=== PATIENT | male | born 1960 | race Two or more races ===

== ENCOUNTER 2023-01-18 14:53 | Inpatient (IN) | payer OTHER, MEDICAID ==
[~2023-01-18] VITALS: Ht 177.8 cm; Wt 93.0 kg
[2023-01-18] MEDS ORDERED: ASPirin-EC 81 mg tab PO ONE (15:15)
[2023-01-18] MEDS ORDERED: NITROGLYCERIN 2% OINT 1GM PKG TD ONE (15:15)
[2023-01-18 15:35] LABS: Basophils # (auto) 0 10 ^3/uL (0-0.2); Basophils % (auto) 0.4 % (0.0-2.0); Eosinophils # (auto) 0 10 ^3/uL (0-0.8); Eosinophils % (auto) 0.1 % (0.0-7.0); Hematocrit 38.6 % (41.0-53.0); Hemoglobin 12.6 g/dL (13.5-17.5); Lymphocytes # (auto) 0.6 10 ^3/uL (0.4-5.4); Lymphocytes % (auto) 10.4 % (10.0-50.0); Mean Corpuscular Hemoglobin 28.6 pg (28.0-32.0); Mean Corpuscular Hgb Conc. 32.5 g/dL (32.0-36.0); Mean Corpuscular Volume 87.9 fL (80.0-100.0); Monocytes # (auto) 0.4 10 ^3/uL (0-1.3); Monocytes % (auto) 7.6 % (0.0-12.0); Neutrophils # (auto) 4.8 10 ^3/uL (1.6-8.6); Neutrophils % (auto) 81.5 % (37.0-80.0); Nucleated Red Blood Cells % 0.1 %; Red Blood Cells 4.39 10^6/uL (4.5-5.90); Red Cell Distribution Width 16.1 % (11.8-14.3); White Blood Cell 5.9 10^3/uL (4.4-10.8)
[2023-01-18] MEDS ORDERED: ONDANSETRON HCL 4 MG/2 ML VIAL ONE (16:13)
[2023-01-18 16:14] LABS: Albumin 3.8 g/dL (3.4-5.0); Potassium 4.6 mmol/L (3.5-5.1)
[2023-01-18] MEDS ORDERED: ONDANSETRON HCL 4 MG/2 ML VIAL IV ONE ×2 (16:15→20:15)
[2023-01-18 16:19] LABS: BUN/Creatinine Ratio 21.4 (10.0-20.0); Bilirubin, Total 0.2 mg/dL (0.2-1.0); Total Protein 7.2 g/dL (6.4-8.2)
[2023-01-18 16:36] LABS: INR 0.98 (0.9-1.15); Prothrombin Time 10.3 sec (9.3-11.8)
[2023-01-18] MEDS ORDERED: MORPHINE SULFATE 4 MG/ML SYR/VIAL IV ONE (17:00)
[2023-01-18] MEDS ORDERED: HEPARIN DRIP/D5W 100UNITS/ML 250 ML IV SCH ×2 (17:15→17:31)
[2023-01-18] MEDS ORDERED: HEPARIN SODIUM (PORCINE) 5000 UNITS/ML 1ML VIAL IV ONE (17:30)
[2023-01-18 17:46] VITALS: PULSE 124; RESP 20; O2SAT 98
[2023-01-18 18:04] LABS: Basophils # (auto) 0 10 ^3/uL (0-0.2); Basophils % (auto) 0.2 % (0.0-2.0); Eosinophils # (auto) 0 10 ^3/uL (0-0.8); Hematocrit 38.5 % (41.0-53.0); Hemoglobin 12.5 g/dL (13.5-17.5); Lymphocytes # (auto) 0.9 10 ^3/uL (0.4-5.4); Mean Corpuscular Hemoglobin 28.7 pg (28.0-32.0); Mean Corpuscular Hgb Conc. 32.5 g/dL (32.0-36.0); Mean Corpuscular Volume 88.4 fL (80.0-100.0); Monocytes # (auto) 0.7 10 ^3/uL (0-1.3); Neutrophils # (auto) 5.8 10 ^3/uL (1.6-8.6); Neutrophils % (auto) 78.8 % (37.0-80.0); Nucleated Red Blood Cells % 0.2 %; Red Blood Cells 4.35 10^6/uL (4.5-5.90); Red Cell Distribution Width 15.8 % (11.8-14.3); White Blood Cell 7.3 10^3/uL (4.4-10.8)
[2023-01-18] MEDS ORDERED: NITROGLYCERIN 0.4 MG SL TAB SL PRN (18:15)
[2023-01-18] MEDS ORDERED: MORPHINE SULFATE INJ 2 MG/ml SYRG IV PRN (18:15)
[2023-01-18 18:28] LABS: INR 0.98 (0.9-1.15); Partial Thromboplastin Time 27.6 SEC (24.5-34.5); Prothrombin Time 10.3 sec (9.3-11.8)
[2023-01-18 18:30] VITALS: O2SAT 98
[2023-01-18] MEDS ORDERED: DEXTROSE (50%) 50ML SYRG IV PRN (18:30)
[2023-01-18] MEDS ORDERED: IOHEXOL 350 MG/ML 100ML IJ ONE (18:35)
[2023-01-18 18:46] LABS: Cholesterol 137 mg/dL (< 200)
[2023-01-18 18:49] LABS: HDL Cholesterol 64 mg/dL (40-59); LDL Cholesterol 63 mg/dL (< 100); Triglycerides 89 mg/dL (< 150)
[2023-01-18 18:54] VITALS: BP 112/65; PULSE 124; RESP 20; TEMP 98.4; O2SAT 98
[2023-01-18] MEDS ORDERED: METOPROLOL TARTRATE 25 MG TAB PO ONE (19:00)
[2023-01-18 19:34] VITALS: PULSE 130; RESP 17; O2SAT 99
[2023-01-18] MEDS: HYDROcodone-ACET 5/325MG TAB PO PRN (20:44)
[2023-01-18] MEDS: InsuLIN REG 1unit/0.01ml Soln (100units/ml) SC SCH (22:00)
[2023-01-18] MEDS: ACCU-CHEK COMFORT CURVE STRIP VI SCH (22:36)
[2023-01-18] MEDS: ATORVASTATIN 20 MG TAB PO SCH (22:43)
[2023-01-18 23:33] LABS: INR 0.99 (0.9-1.15); Prothrombin Time 10.4 sec (9.3-11.8)
[2023-01-18 23:55] VITALS: PULSE 119; RESP 20; O2SAT 96
[2023-01-19] VITALS (9 sets, daily range): BP systolic 104–125; BP diastolic 74–89; PULSE 121–131; RESP 18–23; TEMP 98.6; O2SAT 94–100
[2023-01-19] MEDS: ONDANSETRON HCL 4 MG/2 ML VIAL IV PRN ×2 (00:04→13:09)
[2023-01-19] MEDS ORDERED: PROMETHAZINE HCL 25 MG/ML 1ML IV ONE (00:30)
[2023-01-19] MEDS: METOPROLOL TARTRATE 25 MG TAB PO SCH ×3 (01:05→22:00)
[2023-01-19] MEDS: ALBUTEROL SULF 2.5 MG/0.5ML(0.5%) NEB SOLN NEB PRN (03:16)
[2023-01-19] MEDS ORDERED: dilTIAZem 25 MG/5 ML VIAL IV ONE (04:00)
[2023-01-19] MEDS ORDERED: ONDANSETRON HCL 4 MG/2 ML VIAL IV ONE (05:15)
[2023-01-19] MEDS ORDERED: MORPHINE SULFATE 4 MG/ML SYR/VIAL IV ONE (05:15)
[2023-01-19 06:08] LABS: INR 0.98 (0.9-1.15); Partial Thromboplastin Time 47.8 SEC (24.5-34.5); Prothrombin Time 10.3 sec (9.3-11.8)
[2023-01-19 06:12] LABS: Potassium 4.3 mmol/L (3.5-5.1)
[2023-01-19 06:16] LABS: Albumin 3.8 g/dL (3.4-5.0); BUN/Creatinine Ratio 19.3 (10.0-20.0); Calcium 9.7 mg/dL (8.7-10.4)
[2023-01-19 06:18] LABS: Bilirubin, Total 0.3 mg/dL (0.2-1.0); Total Protein 7.1 g/dL (6.4-8.2)
[2023-01-19] MEDS: ACCU-CHEK COMFORT CURVE STRIP VI SCH ×4 (06:56→22:09)
[2023-01-19] MEDS: InsuLIN REG 1unit/0.01ml Soln (100units/ml) SC SCH ×4 (07:02→22:26)
[2023-01-19] MEDS: HEPARIN DRIP/D5W 100UNITS/ML 250 ML IV SCH (08:27)
[2023-01-19] MEDS ORDERED: REGADENOSON 0.4 MG/5 ML SYRG IV ONE (09:15)
[2023-01-19] MEDS ORDERED: OPTISON 3ml Vial for INJ IV ONE (10:00)
[2023-01-19] MEDS ORDERED: FUROSEMIDE 100 MG/10ML VIAL IV ONE (10:45)
[2023-01-19] MEDS: HYDROcodone-ACET 5/325MG TAB PO PRN ×2 (10:59→16:31)
[2023-01-19] MEDS: ASPirin 81 mg TAB PO SCH (11:00)
[2023-01-19] MEDS: MORPHINE SULFATE INJ 2 MG/ml SYRG IV PRN (13:10)
[2023-01-19 13:55] LABS: Urine Bacteria NONE SEEN /hpf (None Seen); Urine Blood Negative /uL (Negative); Urine Clarity Clear (Clear); Urine Color Yellow (Yellow); Urine Protein, UAD Negative (Negative); Urine Specific Gravity 1.034 (1.001-1.035); Urine Urobilinogen Normal (Negative); Urine WBC 3 /hpf (0 - 3); Urine pH 5.5 (5.0-8.0)
[2023-01-19 14:13] LABS: INR 1.02 (0.9-1.15); Prothrombin Time 10.7 sec (9.3-11.8)
[2023-01-19 14:17] LABS: Partial Thromboplastin Time 70.1 SEC (24.5-34.5)
[2023-01-19] MEDS ORDERED: MIDAZOLAM HCL 2MG/2ML 2ml VIAL (1mg/ml) ONE (18:50)
[2023-01-19] MEDS ORDERED: VERAPAMIL 2.5MG/ML INJ 2ML VIAL IV ONE (18:50)
[2023-01-19] MEDS ORDERED: fentaNYL CITRATE 100 MCG/2 ML VL ONE (18:50)
[2023-01-19] MEDS ORDERED: SODIUM CHL 0.9% 0 ML ONE (18:51)
[2023-01-19] MEDS ORDERED: HEPARIN SODIUM (PORCINE) 5000 UNITS/ML 1ML VIAL ONE (18:52)
[2023-01-19] MEDS ORDERED: IODIXANOL 320MG/ML 100ML BTL IV ONE (18:57)
[2023-01-19] MEDS ORDERED: LIDOCAINE 2%HCL (LOCAL ANESTH.) INJ 20ML MDV ONE (18:57)
[2023-01-19] MEDS ORDERED: LORazepam 2MG/ML-1ML VIAL IV ONE ×2 (21:30→21:45)
[2023-01-19] MEDS: ATORVASTATIN 20 MG TAB PO SCH (22:02)
[2023-01-20] VITALS (9 sets, daily range): BP systolic 107–126; BP diastolic 66–79; PULSE 111–135; RESP 20–24; TEMP 97.5–98.9; O2SAT 92–98
[2023-01-20] MEDS: ALBUTEROL SULF 2.5 MG/0.5ML(0.5%) NEB SOLN NEB PRN (02:54)
[2023-01-20] MEDS: ACETAMINOPHEN 325 MG TAB PO PRN ×2 (04:29→08:15)
[2023-01-20] MEDS: InsuLIN REG 1unit/0.01ml Soln (100units/ml) SC SCH ×3 (06:59→17:45)
[2023-01-20] MEDS: ACCU-CHEK COMFORT CURVE STRIP VI SCH ×3 (06:59→17:45)
[2023-01-20] MEDS: ONDANSETRON HCL 4 MG/2 ML VIAL IV PRN (08:15)
[2023-01-20] MEDS: ASPirin 81 mg TAB PO SCH (08:15)
[2023-01-20] MEDS: MORPHINE SULFATE INJ 2 MG/ml SYRG IV PRN (08:19)
[2023-01-20] MEDS: METOPROLOL TARTRATE 25 MG TAB PO SCH ×4 (08:23→10:03)
[2023-01-20] MEDS ORDERED: LATA0.008 EACHEYE (09:12)
[2023-01-20] MEDS ORDERED: DOCU250C67 PO (09:12)
[2023-01-20] MEDS ORDERED: POTA-228 (09:12)
[2023-01-20] MEDS ORDERED: CAPE1TAB11 PO (09:12)
[2023-01-20] MEDS ORDERED: FER325T PO (09:12)
[2023-01-20] MEDS ORDERED: ATOR10TA52 PO (09:12)
[2023-01-20] MEDS ORDERED: METF-370 PO (09:12)
[2023-01-20] MEDS ORDERED: ERGO1CAP12 PO (09:12)
[2023-01-20] MEDS ORDERED: TIOTCAP INH (09:12)
[2023-01-20] MEDS ORDERED: CARV3.1240 PO (09:12)
[2023-01-20] MEDS ORDERED: OMEP-448 (09:12)
[2023-01-20] MEDS ORDERED: FURO40TA4 PO ×2 (09:12→09:45)
[2023-01-20] MEDS ORDERED: IPRAAER6 INH (09:12)
[2023-01-20] MEDS ORDERED: GABA-1250 PO (09:12)
[2023-01-20] MEDS ORDERED: HYDR-4072 (09:12)
[2023-01-20] MEDS ORDERED: CAPE1TAB PO (09:12)
[2023-01-20] MEDS ORDERED: FLUT500M2 (09:12)
[2023-01-20] MEDS ORDERED: FUROSEMIDE 20 MG/2 ML VIAL IV ONE (09:45)
[2023-01-20] MEDS ORDERED: MET25T PO (09:45)
[2023-01-20] MEDS ORDERED: EMPA1TAB PO (09:45)
[2023-01-20] MEDS ORDERED: SPIR25TA PO (09:45)
[2023-01-20] MEDS ORDERED: SACUBITRIL-VALSARTAN 24mg/26mg TAB PO SCH (10:00)
[2023-01-20] MEDS ORDERED: SPIRONOLACTONE 25 MG TAB PO SCH (10:00)
[2023-01-20] MEDS ORDERED: PANTOPRAZOLE 40 MG/10 ML VIAL INJ IV ONE (10:15)
[2023-01-20 12:10] LABS: Anion Gap 5.3 (5-15); Calcium 9.5 mg/dL (8.5-10.1); Carbon Dioxide 38.7 mmol/L (20-30); Chloride 93 mmol/L (98-107); Potassium 3.9 mmol/L (3.5-5.1); Sodium 137 mmol/L (136-145)
[2023-01-20 12:15] LABS: Glucose 223 mg/dL (74-106)
[2023-01-20 12:16] LABS: BUN/Creatinine Ratio 21.9 (10.0-20.0); Blood Urea Nitrogen 16 mg/dL (9-23); Magnesium 2.1 mg/dL (1.6-2.6)
[2023-01-20] MEDS: HYDROcodone-ACET 5/325MG TAB PO PRN ×2 (12:17→17:54)
[2023-01-20 15:13] LABS: Lactic Acid w/Reflex 2.2 mmol/L (0.4-2.0)
[2023-01-20 15:16] LABS: Basophils # (auto) 0 10 ^3/uL (0-0.2); Basophils % (auto) 0.2 % (0.0-2.0); Eosinophils # (auto) 0 10 ^3/uL (0-0.8); Hematocrit 38.3 % (41.0-53.0); Hemoglobin 12.3 g/dL (13.5-17.5); Lymphocytes # (auto) 0.5 10 ^3/uL (0.4-5.4); Lymphocytes % (auto) 4.8 % (10.0-50.0); Mean Corpuscular Hemoglobin 28.6 pg (28.0-32.0); Mean Corpuscular Volume 89.3 fL (80.0-100.0); Monocytes # (auto) 0.7 10 ^3/uL (0-1.3); Monocytes % (auto) 6.3 % (0.0-12.0); Neutrophils % (auto) 88.7 % (37.0-80.0); Red Blood Cells 4.29 10^6/uL (4.5-5.90); Red Cell Distribution Width 15.7 % (11.8-14.3); White Blood Cell 11.3 10^3/uL (4.4-10.8)
[2023-01-21] MEDS ORDERED: EMPAGLIFLOZIN 10 MG TAB PO SCH (07:00)
[2023-01-21 09:49] LABS: Hepatitis B Surface Antigen Negative (Negative)
[2023-01-21] MEDS ORDERED: PANTOPRAZOLE 40 MG/10 ML VIAL INJ IV SCH (10:00)
[2023-01-21 10:11] LABS: Hepatitis C Antibody Negative (Negative)
== END 2023-01-20 20:37 | disposition home health service (06) | DRG 280 ==
LOC: EDBD 14:53 → ER 14:53 → TELE 18:04 → TELE-WESTW 01-19 20:11
PROVIDERS: ADMIT Nurse Practitioner Family; ATTEND Internal Medicine
PROC: 4A023N7 Measurement of Cardiac Sampling and Pressure, Left Heart, Percutaneous Approach (ICD-10-PCS; principal; 2023-01-20)
PROC: B211YZZ Fluoroscopy of Multiple Coronary Arteries using Other Contrast (ICD-10-PCS; 2023-01-20)
PROC: B215YZZ Fluoroscopy of Left Heart using Other Contrast (ICD-10-PCS; 2023-01-20)
DX: I21.4 Non-ST elevation (NSTEMI) myocardial infarction (principal); I50.21 Acute systolic (congestive) heart failure; J96.21 Acute and chronic respiratory failure with hypoxia; C18.9 Malignant neoplasm of colon, unspecified; I42.8 Other cardiomyopathies; J44.1 Chronic obstructive pulmonary disease with (acute) exacerbation; E11.65 Type 2 diabetes mellitus with hyperglycemia; E11.9 Type 2 diabetes mellitus without complications; G89.29 Other chronic pain; E78.5 Hyperlipidemia, unspecified; E66.9 Obesity, unspecified; I11.0 Hypertensive heart disease with heart failure; Z88.5 Allergy status to narcotic agent; Z99.81 Dependence on supplemental oxygen; Z85.038 Personal history of other malignant neoplasm of large intestine; Z79.899 Other long term (current) drug therapy; Z79.4 Long term (current) use of insulin; Z79.82 Long term (current) use of aspirin; Z68.29 Body mass index [BMI] 29.0-29.9, adult
CPT/HCPCS: 36415; 71045; 71275; 74176; 76937; 80048; 80053; 80061; 81001; 82962; 83036; 83605; 83690; 83735; 83880; 84443; 84484; 85025; 85379; 85610; 85730; 86803; 87340; 93005; 93306; 93458; 93970; 94640; 99152; 99291; C9113; G0378; J1815; J2250; J2405; Q9956; Q9967